=== PATIENT | female | born 1960 | race Caucasian/White ===

== ENCOUNTER 2022-11-30 08:15 | Outpatient (CLI) | payer OTHER, SELFPAY | END 2022-11-30 08:16 | disposition home or self-care (01) | LOC: NFLDREF 12-02 05:55 | PROVIDERS: PCP Family Medicine; Referring Provider Family Medicine; Visit Provider Family Medicine | DX: R73.03 Prediabetes (principal); R79.89 Other specified abnormal findings of blood chemistry; Z13.6 Encounter for screening for cardiovascular disorders | CPT/HCPCS: 80053; 80061; 82306 ==

== ENCOUNTER 2023-03-18 14:51 | Outpatient (CLI) | payer OTHER, SELFPAY ==
--- NOTE | 2023-03-18 15:00 | CRLHL7_ITS ---
For Patients: As a result of the Cures Act, medical imaging exams and procedure reports are released immediately into your electronic medical record. You may view this report before your referring provider. If you have questions, please contact your health care provider. BILATERAL SCREENING MAMMOGRAM WITH COMPUTER-AIDED DETECTION AND TOMOSYNTHESIS TECHNIQUE: CC and MLO views were obtained. These mammographic images have been obtained using full-field digital technique. These mammographic images were interpreted with the benefit of computer-aided detection. Breast tomosynthesis was used in this interpretation. COMPARISON FILM: 03/26/20, 03/15/18, 03/15/17. FINDINGS: The breasts are almost entirely fatty. IMPRESSION: There is no radiographic evidence for malignancy. ASSESSMENT: BI-RADS Category 1: Negative RECOMMENDATION: Routine screening mammogram in 1 year. A lay language report of this examination will be provided to the patient. GEOFFREY MARX M.D. Diagnostic/Nuclear Medicine Radiologist [email or web address] Transcribed: 1:[address]/Dictated by: Geoffrey Marx MD @ 03/19/2023 8:51:00 AM (Electronically Signed)
== END 2023-03-18 14:52 | disposition home or self-care (01) ==
LOC: MAMMO 14:53
PROVIDERS: PCP Family Medicine; Visit Provider Family Medicine
DX: Z12.31 Encounter for screening mammogram for malignant neoplasm of breast (principal)
CPT/HCPCS: 77063; 77067

== ENCOUNTER 2024-03-21 15:45 | Outpatient (CLI) | payer BC, SELFPAY ==
--- NOTE | 2024-03-21 15:40 | CRLHL7_ITS ---
For Patients: As a result of the Century Cures Act, medical imaging exams and procedure reports are released immediately into your electronic medical record. You may view this report before your referring provider. If you have questions, please contact your health care provider. BILATERAL SCREENING MAMMOGRAM WITH COMPUTER-AIDED DETECTION AND TOMOSYNTHESIS TECHNIQUE: CC and MLO views were obtained. These mammographic images have been obtained using full-field digital technique. These mammographic images were interpreted with the benefit of computer-aided detection. Breast Tomosynthesis was used in this interpretation. COMPARISON FILM: 03/18/23, 03/26/20, 03/15/18. FINDINGS: The breasts are almost entirely fatty IMPRESSION: There is no radiographic evidence for malignancy. ASSESSMENT: BI-RADS Category 1: Negative RECOMMENDATION: Routine screening mammogram in 1 year. A lay language report of this examination will be provided to the patient. Eron Ambrose M.D. Diagnostic Radiologist [email or web address] RHONDA/Dictated by: Eron Ambroes MD @ 03/24/2024 8:43:00 AM (Electronically Signed)
--- OUTSIDE RECORDS SUMMARY | 2024-03-21 15:47 | XMS_ITS | Encounter Summary ---
Author Organization [facility] Address [address] [place] [address] Care Team Providers Care Paint Line Supervisor Name Role Phone Unavailable Primary Care Provider Unavailabl e Reason for Visit * Reason Comments Genetic Testing Results: Negative Encounter Details Date Type Department Care Team (Late st Contact Info) Description 02/15/2024 Documentation Department of Medical Genetics in [place], [place] [address] [place] [address] Nimisha Sanchez Genetic Testing Results: Negative Social History Tobacco Use Types Packs/Day Years Used Date Smoking Tobacco: Never [facility] Utilities Answer Date Recorded In the past 12 months has e electric, gas, oil, or water company threatened to shut off services in your home? No 01/13/2024 Exercise Vital Sign Answer Date Recorde d On average, how many days pe r week do you engage in moderate to strenuous exercise (like a brisk walk)? 5 days 01/13/2024 On average, how many minutes do you engage in exercise at this level? 30 min 01/13/2024 Hunger Vital Sign Answer Date Recorded Within the past 12 months, y ou worried that your food would run out before you got the money to buy more. Never true 01/13/20 24 Within the past 12 months, t he food you bought just didn't last and you didn't have money to get more. Never true 01/13/2024 PRAPARE - Transportation Answer Date Re corded In the past 12 months, has l ack of transportation kept you from medical appointments or from getting medications? No 12/29 In the past 12 months, has l ack of transportation kept you from meetings, work, or from getting things needed for daily living? No 01/13/2024 Nutrition Answer Date Recorded On average, how many serving s of fruits and vegetables do you eat per day (serving size is equal to 1 cup or approximately the size of a tennis ball)? 3-5 01/13/2024 Dental Answer Date Recorded Dental: Regular Dentist Yes 01/13/20 Employment Answer Date Recorded Employment status Employed and actively working without restrictions 01/13/2024 Housing Stability Answer Date Recorded What is your living situation today? 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 CHIEF COMPLAINT Germline genetic testing results. No pathogenic variants identified. See below for genetic test result interpretation and screening recommendations. HISTORY OF PRESENT ILLNESS Nida Harvey was seen in the Department of Clinical Genomics on 01/17/2024 for genetic counselingand consideration of genetic testing due to a family history of a BRCA1 pathogenic variant and due to the maternal and paternal history of cancer. Nida elected to pursue the CancerNext: Expanded panel with site specific BRCA1 analysis, available from [employer]. Genetic testing is complete and these results were communicated to the patient via the patient online services portal by our genetic counseling senior court office assistant. IMPRESSION/REPORT/PLAN Germline genetic testing included sequence analysis and gross deletion/duplication analysis of 71 genes associated with hereditary cancer. For a full list of genes included in the analysis, please refer to the genetic test report scanned into the patient's chart (document viewer tab). I am pleased to share with Nida that no pathogenic variants (mutations) were detected by this testing. This means that Nida did not inherit the familial pathogenic variant in BRCA1 that was previously identified in the family and is at the general population risk for BRCA1-associated health conditions. Because Nida does not carry the BRCA1 variant, Nida cannot pass this to any of their children. Therefore Nida's children would not require increased screening or genetic testing. General population screening recommendations continue to apply to them. Nida's family members who have not undergone BRCA1 genetic testing, but who are at risk to inherit the familial variant are encouraged to undergo screening as if they have the variant, until testing can prove otherwise. Family members who are interested in pursuing genetic testing can visit [email or web address] to locate a genetic counselor in their area. To facilitate testing, they should bring a copy of a family member's positive genetic test report with them to the appointment. Regarding Nida's additional maternal and paternal history of cancer, the fact that no pathogenic variants were detected in the genes for which Nida was tested is reassuring. However, the fact that a variant was not identified does not eliminate the possibility that Nida and/or Nida's family membershave another currently undetected hereditary susceptibility to cancer. Genetic testing has less than 100% sensitivity, meaning there is a small possibility that a variant exists in one of the genes analyzed which cannot be identified by current testing methodology. It is also possible that variantsin cancer susceptibility genes which have not yet been discovered may be contributing to the personal and/or family history of cancer. It is also possible that there is a hereditary susceptibility tocancer that has affected the patient's family members, that Nida simply did not inherit. Family members (e.g. those with a cancer diagnosis themselves) may wish to pursue their own genetic testing tofurther clarify the family's risk. PERSONAL AND FAMILY SCREENING RECOMMENDATIONS Though a pathogenic genetic variant has been identified in the family, this genetic variant is unlikely to explain all of the patient's maternal and paternal history of cancer. When some cancers remain unexplained by a genetic variant, it is generally recommended to screen patients and their familymembers based on the personal and/or family history of cancer. Relatives who are at 50% risk of carrying a familial BRCA1 pathogenic variant should be screened asthough they have the pathogenic variant until proven otherwise by a negative genetic test result. Though a pathogenic genetic variant has been identified in the family, this genetic variant cannot explain both the patient's maternal AND paternal family history of cancer. Additionally, not every affected individual in the family has undergone genetic testing at this time, so it cannot be stated with certainty who in the family has an explain cancer by the familial genetic variant in BRCA1. When some cancers remain unexplained by a genetic variant, it is generally recommended to screen patients and their family members based on the personal and/or family history of cancer. Individuals in this family with a first- or second-degree relative diagnosed with colorectal cancerremain at increased risk for colorectal cancer given their family history. According to National Comprehensive Cancer Network guidelines, individuals who have a first degree relative with colorectal cancer at any age are advised to begin colonoscopies at age 40 or approximately ten years younger than the earliest age of colon cancer diagnosis (whichever is earliest). Colonoscopy should be repeated every 5 years or earlier based on colonoscopy findings. Individuals with a second degree relative with colon cancer are advised to begin screening at age 45. Some combinations of affected first-,seco nd-, and third-degree relatives may increase risk sufficiently to alter screening guidelines. Colonoscopy intervals should be further modified based on personal and family history as well as on individual preferences. Factors that modify age to begin screening and colonoscopy intervals include: ageof individual undergoing screening; specifics of the family history, including number and age of onset of all affected relatives; size of family; completeness of the family history; participating in screening; and colonoscopy findings in family members. Final screening recommendations should be made by the managing physician. Men in this family may have an elevated empiric risk for prostate cancer based on the family history. Prostate cancer screening can help identify cancer early on, when treatment is most effective. Prostate cancer screening modalities currently consists of measuring prostate-specific antigen (PSA) levels via a blood test and digital rectal examinations (DREs). The Canadian Cancer Society currentlyrecommends that men at average risk for prostate cancer should receive information about screening beginning at age 50 years. Men at higher risk, including /Black men and men who havea first-degree relative (father or brother) diagnosed with prostate cancer before age 65 years, should receive this information beginning at age 45 years. Men at appreciably higher risk (multiple family members diagnosed with prostate cancer before age 65 years) should receive this information beginning at age 40 years. According to the Canadian Cancer Society, individuals with a family history of melanoma are encouraged to: (1) have clinical skin examinations performed by a fruit or nut farmworker every 6-12 months, (2) perform thorough skin self-examinations once a month, and (3) be vigilant about sun protection (e.g. regularly wear sunscreen and avoid the use of tanning beds). Individuals in this family with a first- or second-degree relative diagnosed with another type of cancer or tumor may remain at increased risk for these cancers and/or tumors given their family history. These individuals would be advised to share their family history with their care providers and discuss their screening options with their managing providers. These screening recommendations are based on national guidelines. Final screening recommendations should be deferred to the discretion of the managing physician. Other screening recommendations, suchas those made by the Canadian Cancer Society, do remain appropriate. PLAN It is recommended that Nida contact our clinic if there are changes to the personal or family history of cancer, as this information may change our genetic testing recommendations. Additionally, Seda welcome to contact our clinic periodically, as our genetic testing options will likely improve over time. Cosigned by Yesenia Costa M.S., [facility] [place] at 02/15/2024 9:52 AM CDT Electronically signed by Yesenia Costa M.S., [facility] [place] at 02/15/2024 9:52 AM CDT documented in this encounter Plan of Treatment Not on file documented as of this encounter Visit Diagnoses Not on filedocumented in this encounter Additional Health Concerns Assessment Noted Time PHQ-9 Depression Total Score: 0 03/27/20 16 5:03 PM CDT documented as of this encounter
--- OUTSIDE RECORDS SUMMARY | 2024-03-21 15:47 | XMS_ITS | Encounter Summary ---
Author Organization [facility] Address [address] [place] [address] Care Team Providers Care Web Content Writer Name Role Phone Unavailable Primary Care Provider Unavailabl e Encounter Details Date Type Department Care Team (Late st Contact Info) Description 02/17/2024 4:00 PM CDT Virtual Visit Department of Medical Genetics in [place], [place] [address] [place] [address] Yesenia Costa M.S., [facility] [address] [place] [address] Family History Genetic Disorder [Z84.81] (Primary Dx) Social History Tobacco Use Types Packs/Day Years Used Date Smoking Tobacco: Never [facility] Utilities Answer Date Recorded In the [...] money to buy more. Never true 01/13/20 Within the past 12 months, t he [...] your living situation today? 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 To review, Nida was seen in the Department of Clinical Genomics for genetic counseling and consideration of genetic testing due to a family history of a pathogenic variant in BRCA1. At that consultation, the patient elected to pursue the CancerNext: Expanded panel with site specific BRCA1 analysis,available from [employer]. Germline genetic testing included sequence analysis and gross deletion/duplication analysis of 71 genes associated with hereditary cancer. For a full list of genes included in the analysis, please refer to the genetic test report scanned into the patient's chart (document viewer tab). No pathogenic variants (mutations) were detected by this testing. This means that Nida did not inherit the familial pathogenic variant in BRCA1 that was previously identified in the family and is at the general population risk for BRCA1-associated health conditions. Please see the 02/15/2024 documentation of my colleague, Nimisha Sanchez, for additional details and screening/management recommendations. It was a pleasure to meet Nida. The family is certainly welcome to contact me with any additional questions. PATIENT EDUCATION: All of the information from the 02/15/2024 results documentation was explained indetail with the patient who verbalized understanding. There were no apparent barriers to learning and understanding. The patient's questions were answered. Total time: 6 minutes documented in this encounter Plan of Treatment Not on file documented as of this encounter Visit Diagnoses Diagnosis Family History Genetic Disorder [Z84.81]- Primary documented in this encounter Additional Health Concerns Assessment Noted Time PHQ-9 Depression Total Score: 0 03/27/20 16 5:03 PM CDT documented as of this encounter
--- OUTSIDE RECORDS SUMMARY | 2024-03-21 15:47 | XMS_ITS | Encounter Summary ---
Author Organization [facility] Address [address] [place] [address] Care Team Providers Care Insulator Apprentice Name Role Phone Unavailable Primary Care Provider Unavailabl e Encounter Details Date Type Department Care Team (Latest Contact Info) Description 01/25/2024 2:13 PM CDT - 01/25/2024 11:59 PM CDT Hospital Encounter Department of Laboratory Medicine and Pathology, [facility], in [place], [place] [address] [place] [address] Erasmo Gillespie M.D. [address] [place] [address] Malignancy Family History; Family History Carrier Genetic Disease Discharge Disposition: Home or Self Care Social History Tobacco Use Types Packs/Day Years Used Date Smoking Tobacco: Never [facility] Utilities Answer Date Recorded In the past 12 months has [employer] electric, gas, oil, or water company threatened [...] your living situation today? 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 Gender Identity Female 01/13/2024 9:52 PM CDT Sexual Orientation Straight 01/13/2024 9: 52 PM CDT documented as of this encounter Plan of Treatment Not on file documented as of this encounter Procedures Procedure Name Priority Date/Time Associated Diagnosis Comments MISCELLANEOUS SENT OUT LAB TEST Routine 02/15/2024 8:13 AM CDT Malignancy Family History Family History Carrier Genetic Disease [facility] AMBRY GENETICS Routine 01/31/2024 1 2:00 AM CDT [facility] MML REFERRAL TEST 1-SENT OUT LAB Routine 01/31/2024 12:00 AM CDT documented in this encounter Results * [id number] [facility] Custom Panel - Miscellaneous Test (02/15/2024 8:13 AM CDT) Test Name Ambry Custom Panel 02/15/2024 8:14 AM CDT HLS Saliva (Mouth) 02/15/2024 8: 13 AM CDT 02/15/2024 8:13 AM CDT us Erasmo Gillespie M.D. LAB MISC ORDERABLES Final Result Performing Organization Address [facility] Co de Phone Number [facility] [address] [place] [address], [facility] HLS [facility] [address] [place] [address] * [facility] MML Referral Test 1-Sent Out Lab (01/31/2024 12:00 AM CDT) Test Name Ambry Custom Panel 02/15/2024 8:18 AM CDT MISC Result SEE COMMENT 02/15/2024 8:56 AM CDT MISC Comment: For final report, select Lab-Send Out Lab Results hyperlink below. Test Performed By: [employer] [address] [place] ??[id number] 01/31/2024 02/15/2024 8:1 8 AM CDT us Erasmo Gillespie M.D. LAB MISC ORDERABLES Final Result Performing Organization Address City/[facility] Co de Phone Number MISC REFERRAL LAB MISC * [facility]isc [facility] (01/31/2024 12:00 AM CDT) Test Name Ambry Custom Panel 02/15/2024 8:14 AM CDT AMBR Result SEE COMMENT 02/15/2024 8:56 AM CDT AMBR Comment: For final report, select Lab-Send Out Lab Results hyperlink below. 01/31/2024 02/15/2024 8:1 3 AM CDT us Erasmo Gillespie M.D. LAB MISC ORDERABLES Final Result [address] [place] [address], [facility] [address] [place] [address] documented in this encounter Visit Diagnoses Diagnosis Malignancy Family History Family History Carrier Genetic Disease documented in this encounter Additional Health Concerns Assessment Noted Time PHQ-9 Depression Total Score: 0 03/27/20 16 5:03 PM CDT documented as of this encounter
--- OUTSIDE RECORDS SUMMARY | 2024-03-21 15:47 | XMS_ITS | Clinical Summary ---
Author Organization [facility] Address [address] [address] Care Team Providers Care Optics Engineer Name Role Phone Unassigned, Provider Primary Care Provider Unava ilable Source Comments You are receiving this document as you are listed as the primary care provider,follow-up provider, or the patient has been referred to you for consultation.This is in compliance with the Medicare and[facility] EHR Incentive Program,which states Providers who transition their patient to another setting of careor provider of care or refers their patient to another provider of care shouldprovide summary care record for each transition of care or referral. [place] Allergies Active Allergy Reactions Criticality Noted Date Comments Fexofenadine-Pseudoephe d Er Other, see comments 05/21/2021 Cold symptoms. Can have Benadryl Clomipramine Other, see comments High 05/21/2021 Swelling Medications Medication Sig Dispensed Refills Start Date End Date Status fluticasone propionate (FLONASE) 50 MCG/ACT nasal solutionIndications:A llergic rhinitis, unspecified seasonality, unspecified trigger Place 2 Sprays into both nostrils daily. Prn allergies. 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 Heart disorder Brother 2 Tachycardia o f some sort. Migraines Daughter Caitlin Autism Son 1 Conrad Asbergers, high functioning. Crohn's Disease Son 1 Conrad No Known Problems Son 2 Luis Relation Name Status Comments Father Alive Mother Alive Brother 1 Alive Brother 2 Alive Daughter Caitlin Alive Son 1 Conrad Alive Son 2 Luis Alive Social History Tobacco Use Types Packs/Day Years Used Date Smoking Tobacco: Never Smokeless Tobacco: Never Alcohol Use Standard Drinks/Week Comments Yes 0 (1 standard drink = 0.6 oz pur e alcohol) rare PHQ-2 Answer Date Recorded PHQ-2 Score 1 05/21/2021 Sex and Gender Information Value Date Recorded Sex Assigned at Not on file Gender Identity Not on file Sexual Orientation Not on file Last Filed Vital Signs Vital Sign Reading Time Taken Comments Blood Pressure - - Pulse - - Temperature - - Respiratory Rate - - Oxygen Saturation - - Inhaled Oxygen Concentration - - Weight 86.2 kg (190 lb) 05/21/2021 7:52 AM [employer] Height - - Body Mass Index - - Plan of Treatment Health Maintenance Due Date Last Done Comments Colon Cancer Screening Plan Due 1960 Mammogram 1960 DTaP/Tdap/Td (1 - Tdap) 01/04/1980 Zoster/Shingles (1 of 2) 2011 Adult Preventive Visit 05/21/2022 05/21/2021 Prediabetes: HGBA1C 05/21/2022 05/21/2021 COVID-19 Vaccine (2 - 2023-2 5 season) 2024 08/11/2020 Influenza (#1) 2024 Cholesterol 05/21/2026 05/21/2021 RSV (1 - 1-dose 75+ series) 01/04/2036 HIV Screening (Preventive Services) Completed 05/21/2021 Hep C Screening (Preventive Services) Completed 05/21/2021 HepA Aged Out No longer eligi ble based on patient's age to complete this topic HepB Aged Out No longer eligi ble based on patient's age to complete this topic Hib Aged Out No longer eligi ble based on patient's age to complete this topic IPV (Polio) Aged Out No longer eligi ble based on patient's age to complete this topic RSV Aged Out No longer eligi ble based on patient's age to complete this topic MCV4 Aged Out No longer eligi ble based on patient's age to complete this topic Pneumococcal Aged Out No longer eligi ble based on patient's age to complete this topic Procedures Procedure Name Priority Date/Time Associated Diagnosis Comments HGB A1C Routine 05/21/2021 8:44 AM [employer] Prediabetes HIV 1/2 AG/AB 4TH GEN Routine 05/21/2021 8:44 AM [employer] Screen for STD (sexually transmitted disease) HEPATITIS C ANTIBODY, WITH REFLEX Routine 05/21/2021 8:44 AM [employer] Screen for STD (sexually transmitted disease) LIPID PANEL & DIRECT LDL (IF NEEDED) Routine 05/21/2021 8:44 AM [employer] High cholesterol from Last 3 Months or Most Recently Relevant to Health Maintenance Results * HIV 1/2 Ag/Ab 4th Generation (05/21/2021 8:44 AM [employer]) HIV 1/2 Antigen/Antib kushal (4th generation) Negative (Non Reactive) Negative (Non Reactive) 05/21/2021 1:02 PM [employer] [facility] Comment:HIV-1 p24 Antigen an d HIV-1/HIV-2 Antibody not detected Blood Venipuncture / Unknown 05/21/2021 8:44 AM [employer] 05/21/2021 8:44 AM [employer] Jessica Perkins PA-C [facility] [address] * (ABNORMAL) Lipid Panel and Direct LDL(If Needed) (05/21/2021 8:44 AM [employer]) Cholesterol 217(H) 0 - 199 mg/dL 05/21/2021 12:24 PM [employer] [facility] Triglyceride 110 <=149 mg/dL 05/21/2021 12:24 PM [facility] HDL Cholesterol 51 >=40 mg/dL 12:24 PM [facility] LDL, Calculated 144(H) <130 mg/dL 12:24 PM [facility] Non HDL Chol, Calculated 166(H) <=159 mg/dL 05/21/2021 12:24 PM [facility] Cholesterol/HDL Ratio 4.3 05/21/2021 12:24 PM [facility] Hours Fasting 14 05/21/2021 12:24 PM [facility] Blood Venipuncture / Unknown 05/21/2021 8:44 AM [employer] 05/21/2021 8:44 AM [employer] Jessica Perkins PA-C [facility] [address] [place] [address], [facility] [phone] [facility] [address] [place] [address], [facility] [phone] * Hepatitis C Virus Melony with Reflex (05/21/2021 8:44 AM [employer]) Pathologist [facility] Hepatitis C Antibody Negative (Non Reactive) Negative (Non Reactive) 05/21/2021 1:02 PM [employer] [facility] Comment:Antibodies to HCV no t detected. Does not exclude the possiblity of exposure to HCV. Blood Venipuncture / Unknown 05/21/2021 8:44 AM [employer] 05/21/2021 8:44 AM [employer] Jessica Perkins PA-C [facility] [address] [place] [address], [facility] * (ABNORMAL) Hgb A1C (05/21/2021 8:44 AM [employer]) Hemoglobin A1C 5.9(H) <=5.6 % 05/21/2021 3:17 PM [employer] [facility] Blood Venipuncture / Unknown 05/21/2021 8:44 AM [employer] 05/21/2021 8:44 AM [employer] Narrative [facility] - 05/21/2021 3:17 PM [employer] For patients not previously diagnosed with diabetes: 5.7-6.4%: Increased risk for diabetes 6.5% and greater: Diagnostic for diabetes For patients diagnosed with diabetes: <8.0%: Goal of therapy for ages 18-75 Clinicians may recommend a higher or lower goal for specific individuals. Jessica Perkins PA-C LAB[facility]1 [facility] [address] [address], [facility] [phone] from Last 3 Months or Most Recently Relevant to Health Maintenance Care Teams Optics Engineer Relationship Specialty Start Date End Date Unassigned, Provider [address] [place] [address] PCP - General 03/02/00
--- OUTSIDE RECORDS SUMMARY | 2024-03-21 15:47 | XMS_ITS | Encounter Summary ---
Author Organization [facility] Address [address] [place] [address] Care Team Providers Care Wirer Passenger Car Name Role Phone Unavailable Primary Care Provider Unavailabl e Reason for Visit * Outpatient (Routine) - Closed Specialty Diagnoses / Procedures Referred By Sadie us Referred To Contact Clinical Genomics Diagnoses Malignancy Family History Family History Carrier Genetic Disease Jennifer Talbert M.D. [address] [place] [address] Phone: tel: fax: [facility] Referral ID Status Reason Start Date Expiration Date Visits Re quested Visits Authorized [id number] Closed 12/08/2023 06/08/2025 1 1 Encounter Details Date Type Department Care Team (Late st Contact Info) Description 01/17/2024 8:00 AM CDT Telemedicine Department of Medical Genetics in [place], [place] [address] [place] [phone] Jennifer Talbert M.D. [address] [place] [phone] Yesenia Costa M.S., [facility] [address] [place] [phone] Malignancy Family History; Family History Carrier Genetic Disease Social History Tobacco Use Types Packs/Day Years Used Date Smoking Tobacco: Never [facility] Utilities Answer Date Recorded In the past 12 months has th e electric, gas, oil, or water company [...] your living situation today? 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 REFERRING PROVIDER Jennifer Talbert M.D. CHIEF COMPLAINT Family history of a pathogenic variant in BRCA1 HISTORY OF PRESENT ILLNESS Nida Harvey is a 64 y.o. female referred by Jennifer Talbert M.D. for genetic counseling and consideration of genetic testing due to a family history of a pathogenic variant in BRCA1. The patient has no personal history of cancer. The patient reports a history of pre-cancerous cervical cells. The patient is currently undergoing cancer screening including annual mammogram. The patient previously had bilateral salpingo-oophorectomy with hysterectomy in 2004 for benign reasons including endometriosis and ovarian cysts. The patient???s brother was identified to carry a pathogenic variant in BRCA1. Nida brought a copy of the family genetic test report to today's consultation. The specific familial BRCA1 variant is named: [id number] ([id number]). Nida attended today???s consultation unaccompanied. Consult conducted via real- time audio/video technology by Yesenia Costa M.S., [facility] in [facility] to the patient in Patient's Home. FAMILY HISTORY A detailed family history was obtained from the patient and a pedigree was constructed. The pedigree will be saved as a scanned document and available for viewing under the Media tab of [employer]. Our risk assessment is based upon medical and family history information as provided by the patient, and may change in the future should new information be obtained. Pedigree 01/17/2024 Relevant History: -Brother: melanoma skin cancer, currently age 66 -Brother: prostate cancer dx 67, BRCA1 positive (report reviewed), currently age 68 -Maternal uncle: bone cancer, age 75 -Maternal grandmother: colon cancer dx 75, age 78 -Father: melanoma skin cancer dx 94, currently age 94 -Paternal grandfather: colon cancer dx 62, lung cancer dx 65, heavy smoker, age 66 -No additional reported paternal or maternal family history of cancer -There is no reported consanguinity IMPRESSION/REPORT/PLAN PATIENT EDUCATION Note: the terms male/man and female/woman refer to sex assigned at . Cancer is a relatively common diagnosis in the general population, and the majority of these cancers are not caused by inherited factors. We discussed different observable cancer patterns within families, including sporadic, familial/multifactorial and hereditary. Hereditary cancers are caused by mu tations within a single cancer susceptibility gene. Families with hereditary cancers tend to have the following features: specific types of cancer in multiple close relatives and in several consecutive generations, early age at diagnosis (under 50), multiple primary or bilateral tumors, and a lack of environmental or other known risk factors. HBOC is caused by a mutation within the BRCA1 or BRCA2 genes. Women with an inherited BRCA1 gene mutation have a >60% lifetime risk of developing a primary breast cancer in addition to an increased risk for a second primary breast malignancy. With a mutation in BRCA1, there is also an elevated lifetime risk for ovarian cancer, approximately 39-58%. Men who carry a mutation have an increased risk of developing breast, approximately 0.2-1.2%, and prostate cancer, 7-26%. Additionally BRCA1 carriers have increased risks of pancreatic cancer (<5%). The patient???s brother is known to have hereditary breast and ovarian cancer syndrome (HBOC) due to the presence of a BRCA1 gene mutation. The patient understands that they are at 50% risk of havinga known familial BRCA1 gene mutation, and therefore HBOC, based on their relation to the affected in dividual. Testing for the familial BRCA1 gene mutation was offered to the patient. We discussed the possible implications of a positive test result including screening recommendations from the National Comprehensive Cancer Network (NCCN). If the patient is found to carry the familial mutation, we will discuss the plan for their future management, and the plan for testing other relatives. We also discussed the implications of a negative test result. If the patient is not found to carry the familial mutation, they would be at the general population risk for the development of HBOC-associated cancers. General population screening recommendations would still apply to the patient. PLAN At the end of the visit, the patient elected to pursue the CancerNext: Expanded panel with site specific BRCA1 analysis, available from [employer]. Nida will be mailed a saliva collection kit from the laboratory. The laboratory will billed the patient's insurance directly and will contact the patient if the out of pocket cost is greater than $100. Laws governing genetic discrimination were discussed. Risks, benefits, and limitations of genetic testing were discussed. All results will first be shared with the patient via the patient online portal. If results are negative or a variant of uncertain significance is identified, the patient will be contacted with results via the patient portal or by mailed letter by our genetic counseling assistants. If a pathogenic variant is identified, the patient will first be notified of the result via the portal by a genetic counselor and then a follow-up virtual visit (zoom video call) or an in- person visit will be scheduled to review the results in more detail. If results are complex, the patient will also be offered anin-person or video return visit. Screening recommendations will be made for the patient and family members at the time of results disclosure. PERSONAL AND FAMILY SCREENING RECOMMENDATIONS It is important for the patient to continue to follow the cancer screening recommendations providedby their physicians. Relatives who are at 50% risk of [...] test and digital rectal examinations (DREs). The [place] [employer] currentlyrecommends that men at average [...] at age 40 years. According to the [place] [employer], individuals with a family history of melanoma are encouraged to: (1) have clinical skin examinations performed by a spark plug tester every 6-12 months, (2) perform thorough skin [...] screening recommendations, suchas those made by the [place] [employer], do remain appropriate. It was a pleasure to meet Nida. The family is certainly welcome to contact us with any additional questions. PATIENT EDUCATION: All of the above was discussed in detail with the patient who verbalized understanding. The patient's questions were answered. Total time: 21 minutes documented in this encounter Plan of Treatment Not on file documented as of this encounter Results * [id number] [facility] - Miscellaneous Test (02/15/2024 8:13 AM CDT) Test Name Sadie Custom Panel 02/15/2024 8:14 AM CDT [facility] Saliva (Mouth) 02/15/2024 8: 13 AM CDT 02/15/2024 8:13 AM CDT Erasmo Gillespie M.D. LAB MISC ORDERABLES Final Result [facility] [address] [place] [address], [facility] [address] [place] [address] documented in this encounter Visit Diagnoses Diagnosis Malignancy Family History Family History Carrier Genetic Disease documented in this encounter Additional Health Concerns Assessment Noted Time PHQ-9 Depression Total Score: 0 03/27/20 16 5:03 PM CDT documented as of this encounter
--- OUTSIDE RECORDS SUMMARY | 2024-03-21 15:47 | XMS_ITS | Clinical Summary ---
Author Organization [facility] Address [address] [place] [address] Care Team Providers Care Head Of Stock Name Role Phone Unavailable Primary Care Provider Unavailabl e Source Comments Patient records contain information from all sites at [facility]. For routine questions regarding patient records, call [phone] during business hours, M-F 8:00 AM - 5:00 PM Central Time. Record requests for emergency care only can be directed to [phone] at any time.[facility] Active Problems Problem Noted Date Diagnosed Date Supraventricular Tachycardia, Unspecified 2015 Encounters Date Type Department Care Team Description 02/17/2024 4:00 PM CDT Virtual Visit Department of Medical Genetics in [place], [place] [address] [place] [phone] Yesenia Costa M.S., [facility] Family History Genetic Disorder [Z84.81] (Primary Dx) 02/15/2024 Documentation Department of Medical Genetics in [place], [place] [address] [place] [phone] Nimisha Sanchez Genetic Testing Results: Negative 01/25/2024 2:13 PM CDT - 01/25/2024 11:59 PM CDT Hospital Encounter Department of Laboratory Medicine and Pathology, [facility], in [place], [place] [address] [place] [address] Erasmo Gillespie M.D. Malignancy Family History; Family History Carrier Genetic Disease Discharge Disposition: Home or Self Care 01/25/2024 Clinical Communication Department of Medical Genetics in [place], [place] [address] [place] [address] Yesenia Costa MJonahSJonah, CGC Ambry : [facility] 01/17/2024 8:00 AM CDT Telemedicine Department of Medical Genetics in [place], [place] [address] [place] [address] Jennifer Talbert M.D. Purfeerst, Madaline T MAllan, KARISSA Malignancy Family History; Family History Carrier Genetic Disease from Last 3 Months Family History Medical History Relation Name Comments BRCA1 Positive Brother 1 Steven report review ed by [facility] 01/06/2024: BRCA1 p.C61G c.181T>G, Ambry in 2023, A# [id number] MANJU disease Brother 1 Steven Prostate cancer Brother 1 Steven MANJU disease Brother 2 Jeremiah Heart beats irregular Brother 2 Jeremiah Melanoma Brother 2 Jeremiah Diabetes Father Uzair Jaswinder Wihlems Melanoma Father Uzair Jaswinder Wihlems Ulcers Father Uazir Jaswinder Wihlems Heart disease Father's Brother Diabetes Maternal Grandfather Colon cancer Maternal Grandmother Lyssa Sánchez's esophagus Mother Susan Hysterectomy Mother Susan precancerous ce lls Bone cancer Mother's Brother 1 David Heart failure Mother's Brother 2 Thanh COPD Paternal Grandfather Daisy Colon cancer Paternal Grandfather Daisy Lung cancer Paternal Grandfather Daisy heavy s moker Bowel obstruction Paternal Grandmother ca use of Ulcers Paternal Grandmother Crohn's disease Son 1 Relation Name Status Comments Brother 1 Steven Alive 05/27/1956 Brother 2 Jeremiah Alive Daughter Caitlin Alive Father Uzair Jaswinder Wihlems Alive Father's Brother (Age 68) Father's Sister Alive Maternal Cousin Alive no cancer Maternal Grandfather (Age 90) Maternal Grandmother Lyssa (Age 78) Mother Susan Alive Mother's Brother 1 David (Age 75) Mother's Brother 2 Thanh (Age 94) Mother's Sister (Age 1d) d. 1 Da lakeshia Old Paternal Cousin Alive no cancer Paternal Grandfather Daisy (Age 66) Paternal Grandmother (Age 56) Son 1 Alive Son 2 Alive Social History Tobacco Use Types Packs/Day Years Used Date Smoking Tobacco: Never [facility] Utilities Answer Date Recorded In the [...] your living situation today? 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 Pulse 61 03/28/2016 10:45 AM CDT Value from [employer]. Temperature - - Respiratory Rate 20 03/28/2016 10:3 0 AM CDT Value from [employer]. Oxygen Saturation - - Inhaled Oxygen Concentration - - Weight 93.4 kg (205 lb 14.6 oz) 03/30/2016 9:43 AM CDT Vital sign result from CDM. Height 161.1 cm (5' 3.43) 03/30/2016 9 :43 AM CDT Vital sign result from CDM. Body Mass Index 35.99 03/30/2016 9:43 AM CDT Plan of Treatment Health Maintenance Due Date Last Done Comments CT Colonography 1961 Cologuard 1961 FIT 1961 HIV Screening 1961 Hepatitis C Screening 1961 DTaP,Tdap,and Td Vaccines (1 - Tdap) 01/04/1980 Zoster Vaccines (1 of 2) 2011 Mammogram 03/21/2015 03/21/2014 (Perf ormed elsewhere), 08/25/2013 (Performed elsewhere) Cervical Cancer Screening 08/25/20162013 (Performed elsewhere) Lipid (Cholesterol) Screening 08/25/2018 (Performed elsewhere) Fasting Glucose for Diabetes Screening 03/28/2019 03/28/2016 Colonoscopy 07/17/2021 07/17/2011 (Perf ormed elsewhere) Colorectal Cancer Screening 07/17/2021 Depression Screening (Annual PHQ-2) 05/31/2023 COVID-19 Vaccine (2 - 2023-2 5 season) 2024 08/11/2020 Influenza Vaccine (#1) 2024 Pneumococcal vaccine (0-64 years) Aged Out No longer eligible b ased on patient's age to complete this topic Procedures Procedure Name Priority Date/Time Associated Diagnosis Comments MISCELLANEOUS SENT OUT LAB TEST Routine 02/15/2024 8:13 AM CDT Malignancy Family History Family History Carrier Genetic Disease [facility] MML REFERRAL TEST 1-SENT OUT LAB Routine 01/31/2024 12:00 AM CDT [facility] AMBRY GENETICS Routine 01/31/2024 1 2:00 AM CDT ELECTROLYTE (CHEM 4) PANEL, S/P Routine 03/28/2016 6:41 AM CDT from Last 3 Months or Most Recently Relevant to Health Maintenance Results * [id number] [facility] Custom Panel - Miscellaneous Test (02/15/2024 8:13 AM CDT) Test Name Ambry Custom Panel 02/15/2024 8:14 AM CDT HLS Saliva (Mouth) 02/15/2024 8: 13 AM CDT 02/15/2024 8:13 AM CDT us Erasmo Gillespie M.D. LAB MISC ORDERABLES Final Result Performing Organization Address City/[facility]/ZIP Co de Phone Number [facility] [address] [place] [address], [facility] [address] [place] [address] * [facility] Genetics (01/31/2024 12:00 AM CDT) Test Name Ambry Custom Panel 02/15/2024 8:14 AM CDT AMBR Result SEE COMMENT 02/15/2024 8:56 AM CDT AMBR Comment: For final report, select Lab-Send Out Lab Results hyperlink below. 01/31/2024 02/15/2024 8:1 3 AM CDT us Erasmo Gillespie M.D. LAB MISC ORDERABLES Final Result [facility] [employer] [address] [place] [address], [place] AMBR [facility] [employer] [address] [place] [address] * [facility] MML Referral Test 1-Sent Out Lab (01/31/2024 12:00 AM CDT) Test Name Sadie Custom Panel 02/15/2024 8:18 AM CDT MISC Result SEE COMMENT 02/15/2024 8:56 AM CDT MISC Comment: For final report, select Lab-Send Out Lab Results hyperlink below. Test Performed By: [employer] [address] [place], [place] ??[id number] 01/31/2024 02/15/2024 8:1 8 AM CDT us Erasmo Gillespie M.D. LAB MISC ORDERABLES Final Result MISC REFERRAL LAB MISC * Electrolyte (Chem 4) Panel (03/28/2016 6:41 AM CDT) Chloride, S 106 98 - 107 MMOL/L [facility] HX Bicarbonate, P/S 26 22 - 29 MMOL/L [facility] eGFR-Black/Afri can Gibraltarian >60 >60 ML/MIN/BSA [facility] BUN (Blood Urea Nitrogen), S 12 6 - 21 MG/DL [facility] Sodium, S 142 135 - 145 MMOL/L [facility] Potassium, S 5.1 3.6 - 5.2 MMOL/L [facility] Creatinine 0.9 0.6 - 1.1 MG/DL [facility] eGFR Non-Black/Afric an [place]raltarian >60 >60 ML/MIN/BSA [facility] Anion Gap 10 7 - 15 [facility] Glucose, S 114 70 - 140 MG/DL [facility] 03/28/2016 6:41 AM CDT 03/28/2016 6:41 AM CDT Alayna Gamble APRN, C.N.P., D.N.P. LAB BLOOD ADD-ON Final Result [facility] [address] [place] [address], [facility] from Last 3 Months or Most Recently Relevant to Health Maintenance Insurance [facility]
--- OUTSIDE RECORDS SUMMARY | 2024-03-21 15:47 | XMS_ITS ---
Author Organization [facility] Address [address] [place] [address] Care Team Providers Care Almond Sorter Name Role Phone Unavailable Unavailable Unavailable Surgery Details Not on file Complications Check Surgery Details section. Procedure Estimated Blood Loss Check Surgery Details section. Procedure Findings Check Surgery Details section. Procedure Specimens Taken Check Surgery Details section.
--- OUTSIDE RECORDS SUMMARY | 2024-03-21 15:47 | XMS_ITS | Encounter Summary ---
Author Organization [facility] Address [address] [place] [address] Care Team Providers Care Capping Machine Operator Name Role Phone Unavailable Primary Care Provider Unavailabl e Reason for Visit * Reason Onset Date Comments Ambry : MTP 01/25/2024 Encounter Details Date Type Department Care Team (Late st Contact Info) Description 01/25/2024 Clinical Communication Department of Medical Genetics in [place], [place] [address] [place] [address] Yesenia Costa M.S., [facility] [address] [place] [address] Ambry : [facility] Social History Tobacco Use Types Packs/Day Years Used Date Smoking Tobacco: Never [facility] Utilities Answer Date Recorded In the past [...] living situation today? 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 Provider: Yesenia Costa CGC Insurance: Commercial documented in this encounter Plan of Treatment Not on file documented as of this encounter Visit Diagnoses Not on filedocumented in this encounter Additional Health Concerns Assessment Noted Time PHQ-9 Depression Total Score: 0 03/27/20 16 5:03 PM CDT documented as of this encounter
--- OUTSIDE RECORDS SUMMARY | 2024-03-21 15:47 | XMS_ITS | Referral Summary ---
Author Organization [facility] Address [address] [place] [address] Care Team Providers Care Digitizer Name Role Phone Unavailable Primary Care Provider Unavailabl e Source Comments Patient records contain information from all sites at [facility]. For routine questions regarding patient records, call [phone] during business hours, M-F 8:00 AM - 5:00 PM Central Time. Record requests for emergency care only can be directed to [phone] at any time.[facility] Encounters Date Type Department Care Team Description 02/17/2024 4:00 PM CDT Virtual Visit Department of Medical Genetics in [place], [place] [address] [place] [address] Yesenia Costa M.S., KARISSA Family History Genetic Disorder [Z84.81] (Primary Dx) 02/15/2024 Documentation Department of Medical Genetics in [place], [place] [address] [place] [address] Nimisha Sanchez Genetic Testing Results: Negative 01/25/2024 Clinical Communication Department of Medical Genetics in [place], [place] [address] [place] [address] Yesenia Costa M.S., [facility] Ambry : MTP 01/25/2024 2:13 PM CDT - 01/25/2024 11:59 PM CDT Hospital Encounter Department of Laboratory Medicine and Pathology, [facility], in [place], [place] [address] [place] [address] Erasmo Gillespie M.D. Malignancy Family History; Family History Carrier Genetic Disease Discharge Disposition: Home or Self Care 01/17/2024 8:00 AM CDT Telemedicine Department of Medical Genetics in [place], [place] [address] [place] [address] Jennifer Talbert M.D. Purfeerst, Madaline T, M.S., [facility] Malignancy Family History; Family History Carrier Genetic Disease from Last 3 Months Active Problems Problem Noted Date Diagnosed Date Supraventricular Tachycardia, Unspecified 2015 Social History Tobacco Use Types Packs/Day Years Used Date Smoking Tobacco: Never [facility] [employer]ities Answer Date Recorded In the past 12 months has e [employer] [place], gas, oil, or water [employer] threatened to shut off services in your [...] your living situation today? 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 Gender Identity Female 01/13/2024 9:52 PM CDT [...] 03/30/2016 9:43 AM CDT Plan of Treatment Not on file Procedures Procedure Name Priority Date/Time Associated Diagnosis Comments MISCELLANEOUS SENT OUT LAB TEST Routine 02/15/2024 8:13 AM CDT Malignancy Family History Family History Carrier Genetic Disease [facility] MML REFERRAL TEST 1-SENT OUT LAB Routine 01/31/2024 12:00 AM CDT [facility] AMBRY GENETICS Routine 01/31/2024 1 2:00 AM CDT ELECTROLYTE (CHEM 4) PANEL, S/P Routine 03/28/2016 6:41 AM CDT from Last 3 Months or Most Recently Relevant to Health Maintenance Results * [id number] [facility] Custom Panel - Miscellaneous Test (02/15/2024 8:13 AM CDT) Test Name Ambry Custom Panel 02/15/2024 8:14 AM CDT HLS Saliva (Mouth) 02/15/2024 8: 13 AM CDT 02/15/2024 8:13 AM CDT us Erasmo Gillespie M.D. LAB MISC ORDERABLES Final Result Performing Organization Address City/[facility]/ZIP Co de Phone Number [facility] [address] [place] [address], [facility] [address] [place] [address] * [facility] Genetics (01/31/2024 12:00 AM CDT) Test Name [facility] 02/15/2024 8:14 AM CDT AMBR Result SEE COMMENT 02/15/2024 8:56 AM CDT AMBR Comment: For final report, select Lab-Send Out Lab Results hyperlink below. 01/31/2024 02/15/2024 8:1 3 AM CDT us Erasmo Gillespie M.D. LAB MISC ORDERABLES Final Result Performing Organization Address City/[facility]/ZIP Co de Phone Number [employer] [address] [place] [address], [facility] AMBR [employer] [address] [address] * [facility] MML Referral Test 1-Sent Out Lab (01/31/2024 12:00 AM CDT) Test Name [facility] Custom Panel 02/15/2024 8:18 AM CDT MISC Result SEE COMMENT 02/15/2024 8:56 AM CDT MISC Comment: For final report, select Lab-Send Out Lab Results hyperlink below. Test Performed By: [employer] [address] [place] [place] ??[id number] 01/31/2024 02/15/2024 8:1 8 AM CDT us Erasmo Gillespie M.D. LAB MISC ORDERABLES Final Result MISC REFERRAL LAB MISC * Electrolyte (Chem 4) Panel (03/28/2016 6:41 AM CDT) Chloride, S 106 98 - 107 MMOL/L [facility] HX Bicarbonate, P/S 26 22 - 29 MMOL/L [facility] eGFR-Black/Afri can Namibian >60 >60 ML/MIN/BSA [facility] BUN (Blood Urea Nitrogen), S 12 6 - 21 MG/DL [facility] Sodium, S 142 135 - 145 MMOL/L [facility] Potassium, S 5.1 3.6 - 5.2 MMOL/L [facility] Creatinine 0.9 0.6 - 1.1 MG/DL [facility] eGFR Non-Black/Afric an Namibian >60 >60 ML/MIN/BSA [facility] Anion Gap 10 7 - 15 [facility] Glucose, S 114 70 - 140 MG/DL [facility] 03/28/2016 6:41 AM CDT 03/28/2016 6:41 AM CDT us Alayna Gamble APRN, C.N.P., D.N.P. LAB BLOOD ADD-ON Final Result [facility] [address] from Last 3 Months or Most Recently Relevant to Health Maintenance Insurance [facility]
--- OUTSIDE RECORDS SUMMARY | 2024-03-21 15:47 | XMS_ITS | Encounter Summary ---
Author Organization [facility] Address [address] [place] [address] Care Team Providers Care Traveling Operator Name Role Phone Unavailable Primary Care Provider Unavailabl e Reason for Referral * Outpatient (Routine) - Closed Specialty Diagnoses / Procedures Referred By Sadie us Referred To Contact Clinical Genomics Diagnoses Malignancy Family History Family History Carrier Genetic Disease Jennifer Talbert M.D. [address] [place] [address] Phone: tel: fax: [facility] Referral ID Status Reason Start Date Expiration Date Visits Re quested Visits Authorized [id number] Closed 12/08/2023 06/08/2025 1 1 Encounter Details Date Type Department Care Team (Late st Contact Info) Description 12/08/2023 [facility] [address] [place], [place] [id number] Jennifer Talbert M.D. 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 Gender Identity Female 01/13/2024 9:52 PM CDT Sexual Orientation Straight 01/13/2024 9: 52 PM CDT documented as of this encounter Plan of Treatment Scheduled Referrals Name Type Priority Associated Diagnoses Orde r Schedule Medical Genetics Referral Outpatient Referral Routine Malignancy Family History Family History Carrier Genetic Disease Expected: 12/08/2023 (Approximate), Expires: 03/09/2025 documented as of this encounter Visit Diagnoses Diagnosis Malignancy Family History- Primary Family History Carrier Genetic Disease documented in this encounter Additional Health Concerns Assessment Noted Time PHQ-9 Depression Total Score: 0 03/27/20 16 5:03 PM CDT documented as of this encounter
== END 2024-03-21 15:46 | disposition home or self-care (01) ==
LOC: MAMMO 15:45
PROVIDERS: PCP Family Medicine; Visit Provider Family Medicine
DX: Z12.31 Encounter for screening mammogram for malignant neoplasm of breast (principal)
CPT/HCPCS: 77063; 77067

== ENCOUNTER 2024-04-03 10:05 | Outpatient (CLI) | payer BC, SELFPAY ==
--- OUTSIDE RECORDS SUMMARY | 2024-04-06 07:40 | XMS_ITS | Clinical Summary ---
Author Organization [facility] Address [address] [place] [address] Care Team Providers Care Electronic Bench Technician Name Role Phone Unavailable Primary Care Provider Unavailabl e Source Comments Patient records contain information from all sites at [facility]. For routine questions regarding patient records, call [phone] during business hours, M-F 8:00 AM - 5:00 PM Central Time. Record requests for emergency care only can be directed to [phone] at any time.[facility] Active Problems Problem Noted Date Diagnosed Date Supraventricular Tachycardia, Unspecified 2015 Encounters Date Type Department Care Team Description 02/17/2024 4:00 PM CDT Virtual Visit Department of Medical Genetics in [place], [place] [address] [place] [phone] Yesenia Costa M.S., [facility] Family History Genetic Disorder [Z84.81] (Primary Dx) 02/15/2024 Documentation Department of Medical Genetics in [place], [place] [address] [place] [phone] Nimisha Sanchez Genetic Testing Results: Negative 01/25/2024 2:13 PM CDT - 01/25/2024 11:59 PM CDT Hospital Encounter Department of Laboratory Medicine and Pathology, [facility], in [place], [place] [address] [place] [address] Erasmo Gillespie M.D. Malignancy Family History; Family History Carrier Genetic Disease Discharge Disposition: Home or Self Care 01/25/2024 Clinical Communication Department of Medical Genetics in [place], [place] [address] [place] [address] Yesenia Costa MJonahSJonah, CGC Ambry : [facility] 01/17/2024 8:00 AM CDT Telemedicine Department of Medical Genetics in [place], [place] [address] [place] [address] Jennifer Talbert M.D. Purfeerst, Madaline T MAllan, KARISSA Malignancy Family History; Family History Carrier Genetic Disease from Last 3 Months Family History Medical History Relation Name Comments BRCA1 Positive Brother 1 Steven report review ed by [facility] 01/06/2024: BRCA1 p.C61G c.181T>G, Ambry in 2023, A# [id number] MANJU disease Brother 1 Steven Prostate cancer Brother 1 Steven MANJU disease Brother 2 Jeremiah Heart beats irregular Brother 2 Jeremiah Melanoma Brother 2 Jeremiah Diabetes Father Uzair Jaswinder Wihlems Melanoma Father Uzair Jaswinder Wihlems Ulcers Father Uzair Jaswinder Wihlems Heart disease Father's Brother Diabetes [...] Packs/Day Years Used Date Smoking Tobacco: Never [facility] Utilities Answer Date Recorded In the past [...] your living situation today? 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 Gender Identity Female 01/13/2024 9:52 PM CDT [...] 03/21/2014 (Perf ormed elsewhere), 08/25/2013 (Performed elsewhere) Cervical/Vaginal Cancer Screening 08/25/2016 08/25/2013 (Performed elsewhere) Lipid (Cholesterol) Screening 08/25/2018 (Performed elsewhere) Fasting Glucose for Diabetes Screening 03/28/2019 03/28/2016 Colonoscopy 07/17/2021 07/17/2011 (Perf ormed elsewhere) Colorectal Cancer Screening 07/17/2021 Depression Screening (Annual PHQ-2) 05/31/2023 COVID-19 Vaccine (2 - 2023-2 5 season) 2024 08/11/2020 Influenza Vaccine (#1) 2024 IPV Vaccines Aged Out No longer eligi ble based on patient's age to complete this topic Pneumococcal vaccine (0-64 years) Aged Out No longer eligible b ased on patient's age to complete this topic Procedures Procedure Name Priority Date/Time Associated Diagnosis Comments MISCELLANEOUS SENT OUT LAB TEST Routine 02/15/2024 8:13 AM CDT Malignancy Family History Family History Carrier Genetic Disease [facility] MML REFERRAL TEST 1-SENT OUT LAB Routine 01/31/2024 12:00 AM CDT [facility] AMBRY GENETICS Routine 01/31/2024 1 2:00 AM CDT ELECTROLYTE (CHEM 4) PANEL, S/P Routine 03/28/2016 6:41 AM CDT from Last 3 Months or Most Recently Relevant to Health Maintenance Results * [id number] - Miscellaneous Test (02/15/2024 8:13 AM CDT) Test Name Ambry Custom Panel 02/15/2024 8:14 AM CDT HLS Saliva (Mouth) 02/15/2024 8: 13 AM CDT 02/15/2024 8:13 AM CDT us Erasmo Gillespie M.D. LAB MISC ORDERABLES Final Result [facility] [address] [place] [address], [facility] [address] [place] [address] * [facility] (01/31/2024 12:00 AM CDT) Test Name Ambry Custom Panel 02/15/2024 8:14 AM CDT AMBR Result SEE COMMENT 02/15/2024 8:56 AM CDT AMBR Comment: For final report, select Lab-Send Out Lab Results hyperlink below. 01/31/2024 02/15/2024 8:1 3 AM CDT us Erasmo Gillespie M.D. LAB MISC ORDERABLES Final Result [facility] [employer] [address] [facility] [place] [address], [place] AMBR [facility] [employer] [address] [facility] [place] [address] * [facility] MML Referral Test 1-Sent Out Lab (01/31/2024 12:00 AM CDT) Test Name Sadie Custom Panel 02/15/2024 8:18 AM CDT MIS Result SEE COMMENT 02/15/2024 8:56 AM CDT [facility] Comment: For final report, select Lab-Send Out Lab Results hyperlink below. Test Performed By: [employer] [address] [place] [id number] 01/31/2024 02/15/2024 8: 18 AM CDT us Erasmo Gillespie M.D. LAB [facility] ORDERABLES Final Result [facility] REFERRAL LAB [facility] * Electrolyte (Chem 4) Panel (03/28/2016 6:41 AM CDT) Chloride, S 106 98 - 107 MMOL/L [facility] HX Bicarbonate, P/S 26 22 - 29 MMOL/L [facility] eGFR-Black/Afri can Georgian >60 >60 ML/MIN/BSA [facility] BUN (Blood Urea Nitrogen), S 12 6 - 21 MG/DL [facility] Sodium, S 142 135 - 145 MMOL/L [facility] Potassium, S 5.1 3.6 - 5.2 MMOL/L [facility] Creatinine 0.9 0.6 - 1.1 MG/DL [facility] eGFR Non-Black/Afric an Georgian >60 >60 ML/MIN/BSA [facility] Anion Gap 10 7 - 15 [facility] Glucose, S 114 70 - 140 MG/DL [facility] 03/28/2016 6:41 AM CDT 03/28/2016 6:41 AM CDT us Alayna Gamble APRN, C.N.P., D.N.PJonah LAB BLOOD ADD-ON Final Result [facility] [address] [place] [id number] from Last 3 Months or Most Recently Relevant to Health Maintenance Insurance [facility]
--- OUTSIDE RECORDS SUMMARY | 2024-04-06 07:41 | XMS_ITS ---
Author Organization [facility] Address [address] [place] [address] Care Team Providers Care Accounting Specialist Name Role Phone Unavailable Unavailable Unavailable Surgery Details Not on file Complications Check Surgery Details section. Procedure Estimated Blood Loss Check Surgery Details section. Procedure Findings Check Surgery Details section. Procedure Specimens Taken Check Surgery Details section.
--- OUTSIDE RECORDS SUMMARY | 2024-04-06 07:41 | XMS_ITS | Clinical Summary ---
Author Organization [facility] Address [address], [place] [address] Care Team Providers Care Building Trades Teacher Name Role Phone Unassigned, Provider Primary Care Provider Unava ilable Source Comments You are receiving this document as you are listed as the primary care provider,follow-up provider, or the patient has been referred to you for consultation.This is in compliance with the Medicare and[facility] EHR Incentive Program,which states Providers who transition their patient to another setting of careor provider of care or refers their patient to another provider of care shouldprovide summary care record for each transition of care or referral. [employer] Allergies Active Allergy Reactions Criticality Noted Date [...] 86.2 kg (190 lb) 05/21/2021 7:52 AM BUYER LIAISON Height - - Body Mass Index - [...] Comments HGB A1C Routine 05/21/2021 8:44 AM BUYER LIAISON Prediabetes HIV 1/2 AG/AB 4TH GEN Routine 05/21/2021 8:44 AM BUYER LIAISON Screen for STD (sexually transmitted disease) HEPATITIS C ANTIBODY, WITH REFLEX Routine 05/21/2021 8:44 AM BUYER LIAISON Screen for STD (sexually transmitted disease) LIPID PANEL & DIRECT LDL (IF NEEDED) Routine 05/21/2021 8:44 AM BUYER LIAISON High cholesterol from Last 3 Months or Most Recently Relevant to Health Maintenance Results * HIV 1/2 Ag/Ab 4th Generation (05/21/2021 8:44 AM BUYER LIAISON) HIV 1/2 Antigen/Antib kushal (4th generation) Negative (Non Reactive) Negative (Non Reactive) 05/21/2021 1:02 PM BUYER LIAISON [facility] Comment:HIV-1 p24 Antigen an d HIV-1/HIV-2 Antibody not detected Blood Venipuncture / Unknown 05/21/2021 8:44 AM BUYER LIAISON 05/21/2021 8:44 AM BUYER LIAISON Jessica Perkins PA-C LAB_1 [facility] [address] * (ABNORMAL) Lipid Panel and Direct LDL(If Needed) (05/21/2021 8:44 AM BUYER LIAISON) Cholesterol 217(H) 0 - 199 mg/dL 05/21/2021 12:24 PM BUYER LIAISON [facility] Triglyceride 110 <=149 mg/dL 05/21/2021 12:24 PM [facility] HDL Cholesterol 51 >=40 mg/dL 12:24 PM [facility] LDL, Calculated 144(H) <130 mg/dL 12:24 PM [facility] Non HDL Chol, Calculated 166(H) <=159 mg/dL 05/21/2021 12:24 PM [facility] Cholesterol/HDL Ratio 4.3 05/21/2021 12:24 PM [facility] Hours Fasting 14 05/21/2021 12:24 PM [facility] Blood Venipuncture / Unknown 05/21/2021 8:44 AM BUYER LIAISON 05/21/2021 8:44 AM BUYER LIAISON Jessica Perkins PA-C LAB_1 [facility] [address] [place] [address], [facility] [phone] [facility] [address] [place] [address], [facility] [phone] * Hepatitis C Virus Melony with Reflex (05/21/2021 8:44 AM BUYER LIAISON) Pathologist [facility] Hepatitis C Antibody Negative (Non Reactive) Negative (Non Reactive) 05/21/2021 1:02 PM BUYER LIAISON [facility] Comment:Antibodies to HCV no t detected. Does not exclude the possiblity of exposure to HCV. Blood Venipuncture / Unknown 05/21/2021 8:44 AM BUYER LIAISON 05/21/2021 8:44 AM BUYER LIAISON Jessica Perkins PA-C LAB_1 [facility] [address] [place] [address], [facility] * (ABNORMAL) Hgb A1C (05/21/2021 8:44 AM BUYER LIAISON) Hemoglobin A1C 5.9(H) <=5.6 % 05/21/2021 3:17 PM BUYER LIAISON [facility] Blood Venipuncture / Unknown 05/21/2021 8:44 AM BUYER LIAISON 05/21/2021 8:44 AM BUYER LIAISON Narrative [facility] - 05/21/2021 3:17 PM BUYER LIAISON For patients not previously diagnosed with diabetes: 5.7-6.4%: Increased risk for diabetes 6.5% and greater: Diagnostic for diabetes For patients diagnosed with diabetes: <8.0%: Goal of therapy for ages 18-75 Clinicians may recommend a higher or lower goal for specific individuals. Jessica Perkins PA-C LAB_1 [facility] [address] [address], [facility] [phone] from Last 3 Months or Most Recently Relevant to Health Maintenance Care Teams Building Trades Teacher Relationship Specialty Start Date End Date Unassigned, Provider [address] [place] [address] PCP - General 03/02/00
--- OUTSIDE RECORDS SUMMARY | 2024-04-06 07:41 | XMS_ITS | Encounter Summary ---
Author Organization [facility] Address [address] [place] [address] Care Team Providers Care Factory Supervisor Name Role Phone Unavailable Primary Care Provider Unavailabl e Encounter Details Date Type Department Care Team (Latest Contact Info) Description 01/25/2024 2:13 PM CDT - 01/25/2024 11:59 PM CDT Hospital Encounter Department of Laboratory Medicine and Pathology, [facility], in [place], [place] [address] [place] [address] Erasmo Gillespie M.D. 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 [employer] Gender Identity Female 01/13/2024 9:52 PM CDT Sexual Orientation Straight 01/13/2024 9: 52 PM CDT documented as of this encounter Plan of Treatment Not on file documented as of this encounter Procedures Procedure Name Priority Date/Time Associated Diagnosis Comments MISCELLANEOUS SENT OUT LAB TEST Routine 02/15/2024 8:13 AM CDT Malignancy Family History Family History Carrier Genetic Disease [facility] AMBRY GENETICS Routine 01/31/2024 1 2:00 AM CDT [facility] MML REFERRAL TEST 1-SENT OUT LAB Routine 01/31/2024 12:00 AM CDT documented in this encounter Results * [id number] [facility] Custom Panel - Miscellaneous Test (02/15/2024 8:13 AM CDT) Test Name [facility] Custom Panel 02/15/2024 8:14 AM CDT HLS Saliva (Mouth) 02/15/2024 8: 13 AM CDT 02/15/2024 8:13 AM CDT us Erasmo Gillespie M.D. LAB MISC ORDERABLES Final Result Performing Organization Address [facility] Co de Phone Number [facility] [address] [place] [address], [facility] HLS [facility] [address] [place] [address] * [facility] MML Referral Test 1-Sent Out Lab (01/31/2024 12:00 AM CDT) Test Name [facility] Custom Panel 02/15/2024 8:18 AM CDT MISC Result SEE COMMENT 02/15/2024 8:56 AM CDT MISC Comment: For final report, select Lab-Send Out Lab Results hyperlink below. Test Performed By: [employer] [address] [place], [place] ??[id number] 01/31/2024 02/15/2024 8:1 8 AM CDT us Erasmo Gillespie M.D. LAB MISC ORDERABLES Final Result Performing Organization Address City/[facility] Co de Phone Number MISC REFERRAL LAB MISC * [facility] (01/31/2024 12:00 AM CDT) Test Name [facility] Custom Panel 02/15/2024 8:14 AM CDT AMBR Result SEE COMMENT 02/15/2024 8:56 AM CDT AMBR Comment: For final report, select Lab-Send Out Lab Results hyperlink below. 01/31/2024 02/15/2024 8:1 3 AM CDT us Erasmo Gillespie M.D. LAB MISC ORDERABLES Final Result [employer] [address] [place] [address], [facility] [employer] [address] [place] [address] documented in this encounter Visit Diagnoses Diagnosis Malignancy Family History Family History Carrier Genetic Disease documented in this encounter Additional Health Concerns Assessment Noted Time PHQ-9 Depression Total Score: 0 03/27/20 16 5:03 PM CDT documented as of this encounter
--- OUTSIDE RECORDS SUMMARY | 2024-04-06 07:41 | XMS_ITS | Referral Summary ---
Author Organization [facility] Address [address] [place] [address] Care Team Providers Care Director Of Institutional Research Name Role Phone Unavailable Primary Care Provider Unavailabl e Source Comments Patient records contain information from all sites at [facility]. For routine questions regarding patient records, call [phone] during business hours, M-F 8:00 AM - 5:00 PM Central Time. Record requests for emergency care only can be directed to [phone] at any time.[facility] Encounters Date Type Department Care Team Description 02/17/2024 4:00 PM CDT Virtual Visit Department of Medical Genetics in [place], [place] [address] [place] [address] Yesenia Costa M.S., KARISSA Family History Genetic Disorder [Z84.81] (Primary Dx) 02/15/2024 Documentation Department of Medical Genetics in [place], [place] [address] [place] [address] Nimisha Sanchez Genetic Testing Results: Negative 01/25/2024 Clinical Communication Department of Medical Genetics in [place], [place] [address] [place] [address] Yesenia Costa M.S., [facility] Ambry : MTP 01/25/2024 2:13 PM CDT - 01/25/2024 11:59 PM CDT Hospital Encounter Department of Laboratory Medicine and Pathology, [facility], in [place], [place] [address] [place] [address] Erasmo Gillespie M.D. Malignancy Family History; Family History Carrier Genetic Disease Discharge Disposition: Home or Self Care 01/17/2024 8:00 AM CDT Telemedicine Department of Medical Genetics in [place], [place] [address] [place] [address] Jennifer Talbert M.D. Purfeerst, Madaline T, M.S., [facility] Malignancy Family History; Family History Carrier Genetic Disease from Last 3 Months Active Problems Problem Noted Date Diagnosed Date Supraventricular Tachycardia, Unspecified 2015 Social History Tobacco Use Types Packs/Day Years Used Date Smoking Tobacco: Never [facility] [employer] ([employer]ities Answer Date Recorded In the past 12 months has e two[employer], gas, oil, or water [employer] threatened to shut off services in your [...] your living situation today? 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 Gender Identity Female 01/13/2024 9:52 PM CDT [...] Family History Family History Carrier Genetic Disease [facility] MML REFERRAL TEST 1-SENT OUT LAB Routine 01/31/2024 12:00 AM CDT [facility] AMBRY GENETICS Routine 01/31/2024 1 2:00 AM CDT ELECTROLYTE (CHEM 4) PANEL, S/P Routine 03/28/2016 6:41 AM CDT from Last 3 Months or Most Recently Relevant to Health Maintenance Results * [id number] [facility] Custom Panel - Miscellaneous Test (02/15/2024 8:13 AM CDT) Test Name Amb[facility] Custom Panel 02/15/2024 8:14 AM CDT HLS Saliva (Mouth) 02/15/2024 8: 13 AM CDT 02/15/2024 8:13 AM CDT us Erasmo Gillespie M.D. LAB MISC ORDERABLES Final Result Performing Organization Address City/[facility]/ZIP Co de Phone Number [facility] [address] [place] [address], [facility] [address] [place] [address] * [facility] Genetics (01/31/2024 12:00 AM CDT) Test Name [facility] 02/15/2024 8:14 AM CDT AMBR Result SEE COMMENT 02/15/2024 8:56 AM CDT AMBR Comment: For final report, select Lab-Send Out Lab Results hyperlink below. 01/31/2024 02/15/2024 8:1 3 AM CDT us Erasmo Gillespie M.D. LAB MISC ORDERABLES Final Result Performing Organization Address City/[facility]/ZIP Co de Phone Number [employer] [address] [place] [address], [facility] AMBR [employer] [address] [address] * [facility] MML Referral Test 1-Sent Out Lab (01/31/2024 12:00 AM CDT) Test Name [facility] Custom Panel 02/15/2024 8:18 AM CDT MISC Result SEE COMMENT 02/15/2024 8:56 AM CDT MISC Comment: For final report, select Lab-Send Out Lab Results hyperlink below. Test Performed By: [employer] [address] [place] ??[id number] 01/31/2024 02/15/2024 8:1 8 AM CDT us Erasmo Gillespie M.D. LAB MISC ORDERABLES Final Result MISC REFERRAL LAB MISC * Electrolyte (Chem 4) Panel (03/28/2016 6:41 AM CDT) Chloride, S 106 98 - 107 MMOL/L [facility] HX Bicarbonate, P/S 26 22 - 29 MMOL/L [facility] eGFR-Black/Afri can Venezuelan >60 >60 ML/MIN/BSA [facility] BUN (Blood Urea Nitrogen), S 12 6 - 21 MG/DL [facility] Sodium, S 142 135 - 145 MMOL/L [facility] Potassium, S 5.1 3.6 - 5.2 MMOL/L [facility] Creatinine 0.9 0.6 - 1.1 MG/DL [facility] eGFR Non-Black/Afric an Venezuelan >60 >60 ML/MIN/BSA [facility] Anion Gap 10 7 - 15 [facility] Glucose, S 114 70 - 140 MG/DL [facility] 03/28/2016 6:41 AM CDT 03/28/2016 6:41 AM CDT us Alayna Gamble APRN, C.N.P., D.N.P. LAB BLOOD ADD-ON Final Result [facility] [address] from Last 3 Months or Most Recently Relevant to Health Maintenance Insurance [facility]
--- OUTSIDE RECORDS SUMMARY | 2024-04-06 07:41 | XMS_ITS | Encounter Summary ---
Author Organization [facility] Address [address] [place] [address] Care Team Providers Care Broiler Manager Name Role Phone Unavailable Primary Care Provider Unavailabl e Reason for Visit * Outpatient (Routine) - Closed Specialty Diagnoses / Procedures Referred By Sadie us Referred To Contact Clinical Genomics Diagnoses Malignancy Family History Family History Carrier Genetic Disease Jennifer Talbert M.D. [address] [place] [address] Phone: tel: fax: [facility] Referral ID Status Reason Start Date Expiration Date Visits Re quested Visits Authorized [id number] Closed 12/08/2023 06/08/2025 1 1 Encounter Details Date Type Department Care Team (Late st Contact Info) Description 01/17/2024 8:00 AM CDT Telemedicine Department of Medical Genetics in [place], [place] [address] [place] [phone] Jennifer Talbert M.D. [address] [place] [phone] Yesenia Costa M.S., [facility] [address] [place] [phone] Malignancy Family History; Family History Carrier Genetic Disease Social History Tobacco Use Types Packs/Day Years Used Date Smoking Tobacco: Never [facility] Utilities Answer Date Recorded In the past [...] your living situation today? 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 FAMILY HISTORY A detailed family history was obtained from the patient and a pedigree was constructed. The pedigree will be saved as a scanned document and available for viewing under the Media tab of [employer]. Our risk assessment is based upon medical [...] with site specific BRCA1 analysis, available from [employer]. Nida will be mailed a saliva collection [...] test and digital rectal examinations (DREs). The [place] [employer] currentlyrecommends that men at average [...] at age 40 years. According to the [place] [employer], individuals with a family history of melanoma are encouraged to: (1) have clinical skin examinations performed by a student support advisor every 6-12 months, (2) perform thorough skin [...] screening recommendations, suchas those made by the [place] [employer], do remain appropriate. It was [...] as of this encounter Results * [id number] [facility] - Miscellaneous Test (02/15/2024 8:13 AM CDT) Test Name Sadie Custom Panel 02/15/2024 8:14 AM CDT HLS Saliva (Mouth) 02/15/2024 8: 13 AM CDT 02/15/2024 8:13 AM CDT Erasmo Gillespie M.D. LAB MISC ORDERABLES Final Result [facility] [address] [place] [address], [facility] HLS [facility] [address] [place] [address] documented in this encounter Visit Diagnoses Diagnosis Malignancy Family History Family History Carrier Genetic Disease documented in this encounter Additional Health Concerns Assessment Noted Time PHQ-9 Depression Total Score: 0 03/27/20 16 5:03 PM CDT documented as of this encounter
--- OUTSIDE RECORDS SUMMARY | 2024-04-06 07:41 | XMS_ITS | Encounter Summary ---
Author Organization [facility] Address [address] [place] [address] Care Team Providers Care Court Reporter Name Role Phone Unavailable Primary Care Provider Unavailabl e Reason for Visit * Reason Onset Date Comments Ambry : MTP 01/25/2024 Encounter Details Date Type Department Care Team (Late st Contact Info) Description 01/25/2024 Clinical Communication Department of Medical Genetics in [place], [place] [address] [place] [address] Yesenia Costa M.S., [facility] [address] [place] [address] Ambry : [facility] Social History Tobacco Use Types Packs/Day Years Used Date Smoking Tobacco: Never [facility] Utilities Answer Date Recorded In [...] your living situation today? 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
--- OUTSIDE RECORDS SUMMARY | 2024-04-06 07:41 | XMS_ITS | Encounter Summary ---
Author Organization [facility] Address [address] [place] [address] Care Team Providers Care Safety And Security Manager Name Role Phone Unavailable Primary Care Provider Unavailabl e Reason for Visit * Reason Comments Genetic Testing Results: Negative Encounter Details Date Type Department Care Team (Late st Contact Info) Description 02/15/2024 Documentation Department of Medical Genetics in [place], [place] [address] [place] [address] Nimisha Sanchez Genetic Testing Results: Negative Social History Tobacco Use Types Packs/Day Years Used Date Smoking Tobacco: Never [facility] Utilities Answer Date Recorded In the past [...] your living situation today? 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 Genetic testing is complete and these results were communicated to the patient via the patient online services portal by our genetic counseling catering administrative assistant. IMPRESSION/REPORT/PLAN Germline genetic testing included sequence [...] interested in pursuing genetic testing can visit [email or web address] to locate a genetic counselor in their [...] test and digital rectal examinations (DREs). The [place] [employer] currentlyrecommends that men at average [...] at age 40 years. According to the [place] [employer], individuals with a family history of melanoma are encouraged to: (1) have clinical skin examinations performed by a machine sander every 6-12 months, (2) perform thorough skin [...] screening recommendations, suchas those made by the [place] [employer], do remain appropriate. PLAN It is recommended that Nida contact our clinic if there are changes to the personal or family history of cancer, as this information may change our genetic testing recommendations. Additionally, Seda welcome to contact our clinic periodically, as our genetic testing options will likely improve over time. Cosigned by Yesenia Costa M.S., [facility] at 02/15/2024 9:52 AM CDT documented in this encounter Plan of Treatment Not on file documented as of this encounter Visit Diagnoses Not on filedocumented in this encounter Additional Health Concerns Assessment Noted Time PHQ-9 Depression Total Score: 0 03/27/20 16 5:03 PM CDT documented as of this encounter
--- OUTSIDE RECORDS SUMMARY | 2024-04-06 07:41 | XMS_ITS | Encounter Summary ---
Author Organization [facility] Address [address] [place] [address] Care Team Providers Care Garbage Person Name Role Phone Unavailable Primary Care Provider Unavailabl e Encounter Details Date Type Department Care Team (Late st Contact Info) Description 02/17/2024 4:00 PM CDT Virtual Visit Department of Medical Genetics in [place], [place] [address] [place] [address] Yesenia Costa M.S., [facility] [address] [place] [address] Family History Genetic Disorder [Z84.81] (Primary Dx) Social History Tobacco Use Types Packs/Day Years Used Date Smoking Tobacco: Never [facility] Utilities Answer Date Recorded In [...] your living situation today? 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 Germline genetic testing included sequence analysis and [...] questions were answered. Total time: 6 minutes Electronically signed by Yesenia Costa M.S., [facility] at 02/17/2024 4:45 PM CDT documented in this encounter Plan of Treatment Not on file documented as of this encounter Visit Diagnoses Diagnosis Family History Genetic Disorder [Z84.81]- Primary documented in this encounter Additional Health Concerns Assessment Noted Time PHQ-9 Depression Total Score: 0 03/27/20 16 5:03 PM CDT documented as of this encounter
== END 2024-04-03 10:06 | disposition home or self-care (01) ==
LOC: NFLDREF 04-06 07:39
PROVIDERS: PCP Family Medicine; Referring Provider Family Medicine; Visit Provider Family Medicine
DX: E78.5 Hyperlipidemia, unspecified (principal); R73.03 Prediabetes; R79.89 Other specified abnormal findings of blood chemistry; E78.2 Mixed hyperlipidemia; M81.0 Age-related osteoporosis without current pathological fracture; Z13.9 Encounter for screening, unspecified
CPT/HCPCS: 80053; 80061; 82306